=== PATIENT | female | born 1965 | race African-American/Black ===

== ENCOUNTER 2019-07-04 01:08 | Emergency (ER) | payer MEDICAID ==
[~2019-07-04] VITALS: Ht 165.1 cm; Wt 68.0 kg
[2019-07-04 03:01] LABS: CLARITY URINE CLEAR (CLEAR); COLOR URINE YELLOW (YELLOW); KETONES URINE 2+ (NEGATIVE); LEUKOCYTE ESTERASE URINE NEGATIVE (NEGATIVE); NITRITE URINE NEGATIVE (NEGATIVE); OCCULT BLOOD URINE NEGATIVE (NEGATIVE); PROTEIN URINE NEGATIVE (NEGATIVE); SPECIFIC GRAVITY URINE 1.026 (1.005-1.030)
[2019-07-04 03:02] LABS: BASOPHILS % 1.2 % (0.0-2.0); EOSINOPHILS % 1.1 % (0.0-5.0); HEMATOCRIT. 42.7 % (36.0-48.0); HEMOGLOBIN. 14.5 g/dL (12.0-16.0); LYMPHOCYTES % 25.8 % (20.0-50.0); MEAN CORPUSCULAR HEMOGLOBIN 28.2 pg (28.0-32.0); MEAN CORPUSCULAR VOLUME 82.9 fL (81.0-99.0); MEAN PLATELET VOLUME 7.8 fl (7.4-10.4); MONOCYTES % 6.7 % (2.0-8.0); NEUTROPHILS % 65.2 % (40.0-76.0); PLATELET 446 x1000/uL (130-400); RED BLOOD CELL COUNT 5.15 mill/uL (4.2-5.4); RED CELL DISTRIBUTION WIDTH 13.6 % (11.6-14.6)
[2019-07-04 03:06] LABS: CHLORIDE 104 mEq/L (98-107)
[2019-07-04 04:15] VITALS: BP 106/62
== END 2019-07-04 05:29 | disposition home or self-care (01) ==
LOC: ER 01:08
DX: B34.9 Viral infection, unspecified (principal); J44.1 Chronic obstructive pulmonary disease with (acute) exacerbation; R03.0 Elevated blood-pressure reading, without diagnosis of hypertension; F14.10 Cocaine abuse, uncomplicated
CPT/HCPCS: 36415; 71045; 80053; 81003; 85025; 87804; 99284

== ENCOUNTER 2023-12-06 11:36 | Emergency (ER) | payer MEDICAID, OTHER ==
[~2023-12-06] VITALS: Ht 175.3 cm; Wt 78.0 kg
[2023-12-06 11:44] VITALS: TEMP 97.5; O2SAT 95
[2023-12-06 13:12] VITALS: PULSE 83
[2023-12-06] MEDS: KETOROLAC 15MG/ML VIAL IM ONE (13:12)
[2023-12-06 13:13] VITALS: RESP 16
[2023-12-06] MEDS: LIDOCAINE 5% PATCH TOP SCH (13:13)
[2023-12-06] MEDS: CYCLOBENZAPRINE 10MG TABLET PO ONE (15:39)
[2023-12-06 15:40] VITALS: BP 139/83
[2023-12-06] MEDS ORDERED: LIDO700A15 TP (16:07)
[2023-12-06] MEDS ORDERED: CYCL5TAB MT (16:07)
== END 2023-12-06 17:48 | disposition home or self-care (01) ==
LOC: ER 11:36
DX: M54.40 Lumbago with sciatica, unspecified side (principal); F14.10 Cocaine abuse, uncomplicated; J44.1 Chronic obstructive pulmonary disease with (acute) exacerbation; I10 Essential (primary) hypertension; Z88.0 Allergy status to penicillin
CPT/HCPCS: 96372; 99283; J1885; Z7610